=== PATIENT | female | born 1970 | race Caucasian/White ===

== ENCOUNTER 2017-01-08 11:28 | Outpatient (CLI) | payer OTHER ==
[2017-01-08 12:54] LABS: #Basophils 0.1 thou/uL (0.0-0.2); #Eosinphils 0.2 thou/uL (0.0-0.7); #Lymphocytes 2.3 thou/uL (1.20-3.40); #Monocytes 0.8 thou/uL (0.11-0.59); #Neutrophils 8.9 thou/uL (1.40-6.50); %Basophils 0.8 % (0.0-1.0); %Eosinophils 1.5 % (0.0-10.0); %Lymphocytes 18.4 % (21.0-51.0); %Monocytes 6.8 % (0.0-10.0); %Neutrophils 72.5 % (42.0-75.0); Hemoglobin 15.3 g/dL (12.0-16.0); Mean Corpuscular HGB CONC 34.6 g/dL (32.0-36.0); Mean Corpuscular Hemoglobin 32.7 pg (27.0-31.0); Mean Corpuscular Volume 94.7 fl (81.0-99.0); Mean Platelet Volume 6.1 fL (7.4-10.4); Platelet Count 341 thou/uL (130-400); Red Blood Cell (RBC) Count 4.67 mill/uL (4.20-5.40); White Blood Cell (WBC) Count 12.3 thou/uL (4.8-10.8)
[2017-01-08 13:05] LABS: ALT (SGPT) 19 U/L (0-55); AST (SGOT) 15 U/L (5-34); Albumin 4.1 g/dL (3.5-5.0); Alkaline Phosphatase 60 U/L (40-150); Anion Gap 15 mmol/L (10-20); BUN (Urea Nitrogen) 9 mg/dL (7.0-18.7); Bilirubin, Direct 0.2 mg/dL (0.1-0.3); Bilirubin, Total 0.5 mg/dL (0.2-1.2); Calc. Creatinine Clearance 0 mL/min (70-130); Calcium 9.3 mg/dL (7.8-10.44); Carbon Dioxide 22 mmol/L (22-29); Cardiac Risk 3.9 (Less than 4.5); Chloride 106 mmol/L (98-107); Cholesterol 154 mg/dL (< 200 Desired); Estimated GFR-MDRD 87; Glucose 136 mg/dL (70-105); HDL Cholesterol 40 mg/dL (>60 Neg Risk); LDL Cholesterol, Calculated 92 mg/dL; Potassium 4.2 mmol/L (3.5-5.1); Protein, Total 6.7 g/dL (6.0-8.3); Sodium 139 mmol/L (136-145); Triglycerides 108 mg/dL (Less than 150)
[2017-01-08 13:21] LABS: Free T4 (Free Thyroxine) 0.9 ng/dL (0.70-1.48); Thyroid Stimulating Hormone 0.8455 uIU/mL (0.35-4.94)
[2017-01-08 13:35] LABS: Hemoglobin A1c 8.9 % (4.0-6.0)
== END 2017-01-08 11:29 | disposition home or self-care (01) ==
LOC: NAVSJIPCSP 11:28
PROVIDERS: ATTEND Family Medicine
DX: E06.3 Autoimmune thyroiditis (principal); J40 Bronchitis, not specified as acute or chronic; E11.65 Type 2 diabetes mellitus with hyperglycemia; E11.40 Type 2 diabetes mellitus with diabetic neuropathy, unspecified; E78.5 Hyperlipidemia, unspecified; R40.0 Somnolence; R00.0 Tachycardia, unspecified; G43.009 Migraine without aura, not intractable, without status migrainosus; G31.84 Mild cognitive impairment of uncertain or unknown etiology; E03.8 Other specified hypothyroidism; Z72.0 Tobacco use; Z79.899 Other long term (current) drug therapy
CPT/HCPCS: 36415; 80048; 80061; 80076; 83036; 84439; 84443; 84481; 85025

== ENCOUNTER 2018-08-05 14:40 | Emergency (ER) | payer BC ==
--- NOTE | 2018-08-05 16:13 | RAD ---
RADIOGRAPH CHEST 2 VIEWS: HISTORY: A 47-year-old female with cough, fever, and chest congestion. FINDINGS: There is no air space density, pulmonary edema, pleural effusion, pneumothorax, or cardiomegaly. IMPRESSION: No acute cardiopulmonary findings. jn [] POS: [facility]
[2018-08-05] MEDS ORDERED: Albuterol Sulfate 2.5 mg/0.5 ml Neb ONE (16:51)
[2018-08-05] MEDS ORDERED: Azithromycin 250 MG TAB ONE (17:40)
[2018-08-05] MEDS ORDERED: Dexamethasone 20 MG/5 ML VIAL ONE (17:42)
== END 2018-08-05 18:00 | disposition home or self-care (01) ==
LOC: NAV ERS 14:40
DX: R50.9 Fever, unspecified (principal); R05 Cough; E11.9 Type 2 diabetes mellitus without complications; E78.5 Hyperlipidemia, unspecified; J45.909 Unspecified asthma, uncomplicated; F32.9 Major depressive disorder, single episode, unspecified; F17.210 Nicotine dependence, cigarettes, uncomplicated; Z79.4 Long term (current) use of insulin; Z79.899 Other long term (current) drug therapy
CPT/HCPCS: 71046; 87081; 87430; 87804; 96372; J1100; J7611

== ENCOUNTER 2019-03-09 14:52 | Observation (INO) | payer BC ==
[2019-03-09] MEDS ORDERED: Sodium Chloride 0.9% 1,000 ML ONE ×2 (15:13→16:32)
[2019-03-09] MEDS ORDERED: Morphine 4 MG/ML VIAL ONE (15:13)
[2019-03-09] MEDS ORDERED: Ondansetron PF 4 MG/2 ML Vial ONE (15:13)
[2019-03-09 15:55] LABS: ALT (SGPT) 20 U/L (8-55); AST (SGOT) 21 U/L (5-34); Alkaline Phosphatase 66 U/L (40-150); Anion Gap 16 mmol/L (10-20); BUN (Urea Nitrogen) 9 mg/dL (7.0-18.7); Bilirubin, Total 0.2 mg/dL (0.2-1.2); Calc. Creatinine Clearance 0 mL/min (70-130); Calcium 9.2 mg/dL (7.8-10.44); Carbon Dioxide 23 mmol/L (22-29); Chloride 104 mmol/L (98-107); Estimated GFR-MDRD 87; Globulin 2.6 g/dL (2.4-3.5); Glucose 174 mg/dL (70-105); Lipase 9 U/L (8-78); Magnesium 1.9 mg/dL (1.6-2.6); Potassium 3.5 mmol/L (3.5-5.1); Protein, Total 6.6 g/dL (6.0-8.3); Sodium 139 mmol/L (136-145)
[2019-03-09 16:01] LABS: Hemoglobin 15.1 g/dL (12.0-16.0); Mean Corpuscular HGB CONC 33.5 g/dL (32.0-36.0); Mean Corpuscular Volume 95.5 fL (78.0-98.0); Mean Platelet Volume 5.8 fL (7.4-10.4); Platelet Count 345 thou/uL (130-400); RBC Distribution Width 11.4 % (11.5-14.5); Red Blood Cell (RBC) Count 4.73 mill/uL (4.20-5.40); White Blood Cell (WBC) Count 22.1 thou/uL (4.8-10.8)
[2019-03-09 16:25] LABS: Band 1 % (5-11); Lymphocytes 14 % (21-51); MDiff Complete? YES; Monocytes 3 % (0-10); Neutrophil 82 % (42-75); Platelet Morphology Comment Appears Adequate; RBC Morphology Normal
[2019-03-09 17:06] LABS: Bilirubin Negative (Negative); Blood, Urine Negative (Negative); Clarity Clear (Clear); Glucose, Urine (Dipstick) >=1000 mg/dL (Negative); Leukocyte Negative (Negative); Nitrite Negative (Negative); Protein, Urine (Dipstick) Negative (Neg-Trace); Urobilinogen 0.2 mg/dL (0.2-1.0)
--- NOTE | 2019-03-09 17:43 | CT ---
CT abdomen and pelvis noncontrast HISTORY: Abdominal pain. Diarrhea. Iodine allergy. FINDINGS: Each renal collecting system, ureter, and are decompressed stone apparent. Lack of contrast limits evaluation for other abnormalities. Lung bases are clear. No evidence of elaine l obstruction. Small hiatal hernia. Occasional colonic diverticula. No adjacent inflammation. Urinary bladder is incompletely distended. IMPRESSION: No significant abnormalities are demonstrated. Iodine allergy.
[2019-03-09 19:38] VITALS: BMI 30.4
[2019-03-09] MEDS ORDERED: Ventolin HFA Inhaler 60 PUFF INHALER INH PRN (19:47)
[2019-03-09] MEDS ORDERED: SUMAtriptan Succinate 50 MG TAB PO PRN (19:47)
[2019-03-09] MEDS ORDERED: Loperamide HCl 2 MG CAP PO PRN (19:50)
[2019-03-09] MEDS ORDERED: Calcium Carbonate 500 MG ChewTAB PO PRN (19:50)
[2019-03-09] MEDS ORDERED: Ondansetron ODT 4 MG TAB PO PRN (19:50)
[2019-03-09] MEDS ORDERED: Lantus 1000 UNITS/10 ML VIAL SC SCH (21:00)
[2019-03-09] MEDS: Nicotine 14 MG PATCH TD SCH (21:22)
[2019-03-09] MEDS: Sodium Chloride 0.9% 1,000 ML IV SCH (21:24)
[2019-03-09] MEDS: Famotidine 20 MG TAB PO SCH (21:24)
[2019-03-09] MEDS: Acetaminophen 500 MG TAB PO PRN (21:47)
--- NOTE | 2019-03-10 03:01 | HP ---
HISTORY OF PRESENT ILLNESS: Ms. Olivares is a 48-year-old white female who comes to the emergency room complaining of diarrhea and feeling terrible over the last week. She states this started a week ago Wednesday with upset stomach and some mild diarrhea and has gotten progressively worse. She states it started the afternoon after seeing Dr. Oneil for results of her cardiac cath, which was done on the . The results basically were unremarkable without any blockages. She states she got to the point where every time she ate she would have diarrhea, so she pretty much stopped eating unless her blood sugar started going low. She presented to the emergency room, was evaluated by Dr. Nicolas, which is a pretty standard evaluation. Everything was basically normal except for white count was [id number]. She was noted to be somewhat dehydrated and gave her a brief 3 L of fluid. She states she is much improved, but still very weak and still somewhat nauseous and still having some abdominal pain. The ER physician felt that most likely this was viral etiology, but felt that she was enough dehydrated and diarrhea that he wanted to place her on observation for their evaluation overnight. He contacted me and I agreed, so the patient was admitted. PAST MEDICAL HISTORY: 1. Positive for diabetes type 2, which has been uncontrolled. 2. Chest pressure, which was evaluated by Dr. Oneil with a cardiac cath, which was unremarkable. 3. Hyperlipidemia. 4. Nicotine dependence. The patient is a heavy smoker at least one pack a day for at least 25 years. 5. Tobacco abuse. 6. Noncompliance with medical treatment. 7. Hypothyroidism. 8. History of migraine without aura. 9. Tachycardia. 10. Major depressive episode. 11. Asthma. 12. Hypercholesterolemia. PAST SURGICAL HISTORY: 1. Appendectomy. 2. Bilateral tubal ligation. 3. Bladder suspension. 4. Urine ablation at [facility] in 2009. 5. Right hand surgery. 6. Fiberoptic laryngoscope. 7. [place]il[place] [address] Castellon. 8. Plantar wart removal again by Dr. Bear in 2018. PRESENT MEDICATIONS: Reveal she is presently on the following medications, which include: 1. Metoprolol, I believe it is 50 mg once daily. 2. Crestor 40 mg daily. 3. Lantus 40 units b.i.d. 4. Levothyroxine 75 mcg daily. 5. Montelukast 10 mg every evening. 6. Venlafaxine 150 mg with food b.i.d. 7. Relpax 40 mg once daily. 8. ProAir 2 puffs q.4 hours p.r.n. ALLERGIES: THE PATIENT IS NOTED TO BE ALLERGIC TO POLLENS, SHELLFISH, IODINE, KEFLEX, AUGMENTIN, CIPRO. FAMILY HISTORY: Reveals the patient's father of heart disease and high blood pressure, bleeding ulcer, depression. He also had diabetes and hypertension. The patient's mother is alive, has allergies, heart disease, high blood pressure, asthma, skin cancer, diabetes and hypertension. Siblings had hearing loss after age 20, hypertension, asthma, bleeding and clotting problems. SOCIAL HISTORY: The patient smokes 1 pack per day. She does not drink alcohol. She is and has several children. She does not exercise and does not have advanced directives. REVIEW OF SYMPTOMS: On review, the patient has subjective fever, chills and night sweats. She states she is not gaining weight and thinks she may have lost some weight. She denies any change in vision. Denies any ear problems or ear drainage. Denies any change in hearing loss. Cardiac ni she denies any substernal pressure or palpitations or irregular heartbeat. Denies any racing heartbeats over the last 24 hours. Pulmonary ni, she is not short of breath. She is not wheezing. She does still cough, but that is from her tobacco exposure. GI: The patient has mild diffuse abdominal pain, some nausea, but no vomiting. No significant heartburn, indigestion. She does have diarrhea and no constipation. This has been a change in her bowel habits in the last 10 days. : Denies any dysuria, hematuria, urgency, or frequency. She has not voided very much, but did get 3 L of fluid and has voided a little bit for urine sample. Denies any skin rashes, skin lesions or pruritus. NEUROLOGIC: She denies any confusion or loss of consciousness. PHYSICAL EXAMINATION: GENERAL: This is a well-developed, well-nourished, very pleasant 48-year-old white female who states she feels a little bit better since she has gotten some fluids. HEENT: Normocephalic, nontraumatic cranium with the pupils are equally round and reactive. Extraocular movements are intact. Nose and throat are slightly dry, but clear. NECK: Supple without masses, nodes, or bruits. CHEST: Clear to auscultation. Occasional coarse breath sounds are heard that cleared with cough. The patient does smell of cigarette smoke. HEART: Reveals a regular rate and rhythm without murmurs, gallops, or rubs. ABDOMEN: Soft, but diffusely tender, but no rebound or guarding is noted. The patient has normal bowel sounds at this time. : Deferred. EXTREMITIES: Reveal no clubbing, cyanosis, or edema. MUSCULOSKELETAL: The patient complains of some slight swelling in her right leg, but it is barely noticeable. The patient also complains of some tenderness in her right arm where she had her cardiac cath done, but she states that Dr. Oneil said that was normal. PSYCHOLOGIC: The patient is alert and oriented x3. ASSESSMENT: 1. Most likely viral gastroenteritis. 2. Diabetes type 2. 3. Recent cardiac evaluation for coronary artery disease, which was unremarkable. 4. Hypercholesterolemia. 5. Hypothyroidism. 6. Asthma. 7. Nicotine dependence. 8. History of leukocytosis. 9. Major depressive disorder. 10. History of migraines without aura. 11. Chronic obstructive pulmonary disease. 12. Noncompliance in the past with diabetes and her medical treatments. PLAN: 1. The patient has been admitted. We will continue low normal saline IV. 2. We will repeat a comp met and a CBC tomorrow morning. 3. Continue to make the patient comfortable this evening and make sure, if she has a stool, we will get a stool sample. 4. Stool will be for fecal leukocytes, C. diff, stool culture and sensitivity. Job ID: [id number]
[2019-03-10] MEDS: Loperamide HCl 2 MG CAP PO PRN ×3 (04:50→20:58)
[2019-03-10] MEDS: Levothyroxine Sodium 75 MCG TAB PO SCH (04:50)
[2019-03-10 05:21] LABS: #Basophils 0.1 thou/uL (0.0-0.2); #Eosinphils 0.1 thou/uL (0.0-0.7); #Lymphocytes 2.1 thou/uL (1.20-3.40); #Monocytes 1.7 thou/uL (0.11-0.59); #Neutrophils 17.9 thou/uL (1.40-6.50); %Basophils 0.5 % (0.0-1.0); %Eosinophils 0.3 % (0.0-10.0); %Lymphocytes 9.4 % (21.0-51.0); %Monocytes 7.8 % (0.0-10.0); %Neutrophils 82.1 % (42.0-75.0); Hemoglobin 13.4 g/dL (12.0-16.0); Mean Corpuscular HGB CONC 32.5 g/dL (32.0-36.0); Mean Corpuscular Hemoglobin 31.5 pg (27.0-31.0); Mean Corpuscular Volume 96.8 fL (78.0-98.0); Mean Platelet Volume 5.6 fL (7.4-10.4); Platelet Count 324 thou/uL (130-400); RBC Distribution Width 11.3 % (11.5-14.5); Red Blood Cell (RBC) Count 4.27 mill/uL (4.20-5.40); White Blood Cell (WBC) Count 21.8 thou/uL (4.8-10.8)
[2019-03-10 05:28] LABS: ALT (SGPT) 18 U/L (8-55); AST (SGOT) 20 U/L (5-34); Albumin 3.3 g/dL (3.5-5.0); Alkaline Phosphatase 54 U/L (40-150); Anion Gap 15 mmol/L (10-20); BUN (Urea Nitrogen) 7 mg/dL (7.0-18.7); Bilirubin, Total 0.2 mg/dL (0.2-1.2); Calc. Creatinine Clearance 152 mL/min (70-130); Calcium 8.3 mg/dL (7.8-10.44); Carbon Dioxide 22 mmol/L (22-29); Chloride 110 mmol/L (98-107); Estimated GFR-MDRD Greater than 90; Globulin 2.3 g/dL (2.4-3.5); Glucose 70 mg/dL (70-105); Potassium 3.8 mmol/L (3.5-5.1); Protein, Total 5.6 g/dL (6.0-8.3); Sodium 143 mmol/L (136-145)
[2019-03-10] MEDS ORDERED: Hyoscyamine Sulfate SL 0.125 mg Tablet SL PRN (06:50)
[2019-03-10] MEDS ORDERED: Dextrose 5% in Water 1,000 ML IV PRN (06:51)
[2019-03-10] MEDS ORDERED: HumaLOG 300 UNITS/3 ML VIAL SC PRN ×2 (06:51)
[2019-03-10] MEDS ORDERED: Dextrose 50% Abboject 50 ML SYRINGE IVP PRN (06:52)
[2019-03-10] MEDS: Acetaminophen 500 MG TAB PO PRN (08:55)
[2019-03-10] MEDS: Venlafaxine HCl XR 75 MG CAP PO SCH (08:55)
[2019-03-10] MEDS: Dicyclomine 20 MG TAB PO SCH ×4 (08:56→20:53)
[2019-03-10] MEDS: Rosuvastatin 10 MG TAB PO SCH (08:56)
[2019-03-10] MEDS: Famotidine 20 MG TAB PO SCH ×2 (08:56→20:53)
[2019-03-10] MEDS: Sodium Chloride 0.9% 1,000 ML IV SCH (17:16)
[2019-03-10 18:56] LABS: #Basophils 0.1 thou/uL (0.0-0.2); #Eosinphils 0.1 thou/uL (0.0-0.7); #Lymphocytes 1.9 thou/uL (1.20-3.40); #Monocytes 1.5 thou/uL (0.11-0.59); #Neutrophils 13.9 thou/uL (1.40-6.50); %Basophils 0.5 % (0.0-1.0); %Eosinophils 0.4 % (0.0-10.0); %Lymphocytes 10.9 % (21.0-51.0); %Monocytes 8.7 % (0.0-10.0); %Neutrophils 79.5 % (42.0-75.0); Hemoglobin 12.6 g/dL (12.0-16.0); Mean Corpuscular HGB CONC 33.3 g/dL (32.0-36.0); Mean Corpuscular Hemoglobin 32.3 pg (27.0-31.0); Mean Platelet Volume 5.5 fL (7.4-10.4); Platelet Count 299 thou/uL (130-400); Red Blood Cell (RBC) Count 3.91 mill/uL (4.20-5.40); White Blood Cell (WBC) Count 17.5 thou/uL (4.8-10.8)
[2019-03-10] MEDS: Nicotine 14 MG PATCH TD SCH (21:01)
[2019-03-10] MEDS ORDERED: Zolpidem Tartrate 5 MG TAB PO PRN (21:28)
[2019-03-11 05:18] LABS: #Basophils 0.1 thou/uL (0.0-0.2); #Eosinphils 0.1 thou/uL (0.0-0.7); #Monocytes 1.4 thou/uL (0.11-0.59); #Neutrophils 12.4 thou/uL (1.40-6.50); %Basophils 0.7 % (0.0-1.0); %Eosinophils 0.5 % (0.0-10.0); %Lymphocytes 12.8 % (21.0-51.0); %Monocytes 8.5 % (0.0-10.0); %Neutrophils 77.5 % (42.0-75.0); Mean Corpuscular HGB CONC 33.4 g/dL (32.0-36.0); Mean Corpuscular Volume 95.8 fL (78.0-98.0); Mean Platelet Volume 5.7 fL (7.4-10.4); Platelet Count 317 thou/uL (130-400); RBC Distribution Width 11.8 % (11.5-14.5); Red Blood Cell (RBC) Count 4.06 mill/uL (4.20-5.40)
[2019-03-11] MEDS: Levothyroxine Sodium 75 MCG TAB PO SCH (05:28)
[2019-03-11 05:33] LABS: ALT (SGPT) 17 U/L (8-55); AST (SGOT) 18 U/L (5-34); Albumin 3.2 g/dL (3.5-5.0); Alkaline Phosphatase 53 U/L (40-150); Anion Gap 13 mmol/L (10-20); BUN (Urea Nitrogen) 6 mg/dL (7.0-18.7); Bilirubin, Total 0.3 mg/dL (0.2-1.2); Calc. Creatinine Clearance 0 mL/min (70-130); Calcium 8.2 mg/dL (7.8-10.44); Carbon Dioxide 24 mmol/L (22-29); Chloride 109 mmol/L (98-107); Estimated GFR-MDRD Greater than 90; Globulin 2.1 g/dL (2.4-3.5); Glucose 73 mg/dL (70-105); Potassium 3.5 mmol/L (3.5-5.1); Protein, Total 5.3 g/dL (6.0-8.3); Sodium 142 mmol/L (136-145)
[2019-03-11 07:26] VITALS: BP 107/53; TEMP 97.9
[2019-03-11] MEDS: Dicyclomine 20 MG TAB PO SCH (08:44)
[2019-03-11] MEDS: Famotidine 20 MG TAB PO SCH (08:44)
[2019-03-11] MEDS: Venlafaxine HCl XR 75 MG CAP PO SCH (08:44)
[2019-03-11] MEDS: Acetaminophen 500 MG TAB PO PRN (08:45)
[2019-03-11] MEDS: Loperamide HCl 2 MG CAP PO PRN (08:45)
[2019-03-11] MEDS: Rosuvastatin 10 MG TAB PO SCH (08:51)
--- NOTE | 2019-03-13 11:24 | DIS ---
DATE OF ADMISSION: 03/09/2019 DATE OF DISCHARGE: 03/11/2019 HISTORY OF PRESENT ILLNESS: Ms. Olivares is a very pleasant 48-year-old white female with a 10-day history of diarrhea with nausea, but no vomiting. She was seen in the emergency room with severely [place] [id number]. She usually runs a white count of about [id number], typically with leukocytosis. She was admitted to the hospital, because she was dehydrated and [place] [id number]. Blood cultures have thus far been negative. Stool cultures have been negative thus far. She did get 3 L of fluid in the ER, because of dehydration and we kept her on 50 mL an hour normal saline here. She states she is feeling much better and actually this morning she woke up, she was hungry. Her urine output is back to her normal and her labs are almost back to [place] [id number]. PHYSICAL EXAMINATION: VITAL SIGNS: This morning reveal blood pressure 106/58, pulse 83, respirations 16, O2 saturation 98% on room air, temp 97.0. GENERAL: This is a well-developed, well-nourished, very pleasant white female, who states she feels so much better. She feels like she would like to eat something this morning. HEENT: Normocephalic and nontraumatic cranium. Pupils equally round and reactive. Extraocular movement is intact. Nose and throat are slightly dry, but much improved. NECK: Supple without masses, nodes, or bruits. CHEST: Clear to auscultation. No rales, no rhonchi, no wheezes are noted. No cough is noted this morning. The patient is a heavy smoker. She has been smoking for many years. ABDOMEN: Soft, nontender with normal bowel sounds this morning. No rebound or guarding is noted. The patient states her achiness is pretty much totally gone. GENITOURINARY: Deferred. EXTREMITIES: Reveal no clubbing, cyanosis, or edema. ASSESSMENT: 1. Dehydration. 2. Diarrhea. 3. Type 2 diabetes, fairly well controlled with sliding scale. 4. Hyperlipidemia. 5. Tobacco abuse. 6. Hypothyroidism. 7. History of migraines without aura. 8. Tachycardia, much improved. 9. History of major depressive disorder. 10. History of asthma. 11. History of chronic obstructive pulmonary disease. 12. Hypercholesterolemia. PLAN: 1. The patient has actually done very well. She is ready for discharge. 2. The patient will continue on her present home medications plus we have sent in Bentyl 20 mg 1 p.o. q.i.d. p.r.n. upset or irritable stomach and colon. The patient has also been sent some hyoscyamine 0.375 sublingual underneath her tongue up to 4 times a day p.r.n. bad stomach cramps or abdominal cramps. 3. The patient will follow up with me in my office p.r.n. as needed, hopefully within the next week. Job ID: [id number]
--- NOTE | 2019-03-13 15:44 | PRG ---
DATE OF SERVICE: 03/10/2019 SUBJECTIVE: Ms. Olivares is a 48-year-old white female, came to the emergency room complaining of diarrhea and feeling terrible and dehydrated. She was evaluated and found to have significant diarrhea and dehydration. Dr. Nicolas felt that she needed to be placed in the hospital for further evaluation because she had a white count of 22,000. This morning, her white count was 21,000 and we repeated another one today at 17,000. She states she is feeling a little better this evening, but still unable to keep very much down and still having some pasty type stools. It is felt that the patient needs one more night of IV fluids and hopefully, she will be better in the morning. We can discharge her. OBJECTIVE: VITAL SIGNS: Today reveal blood pressure 107/59; pulse 88, down to 83; T-max 98.3; respirations 18 to 20; O2 saturation 95% to 96% on room air. GENERAL: This is a well-developed, well-nourished, 48-year-old white female, in no apparent distress at this time. HEENT: Reveals normocephalic and nontraumatic cranium. Pupils are equal, round, reactive. Extraocular movements are intact. Nose and throat are slightly dry, but better. NECK: Supple without masses, nodes, or bruits. CHEST: Clear to auscultation. No rales, rhonchi, wheezes, or cough is noted. HEART: Reveals a regular rate and rhythm without murmurs, gallops, or rubs. ABDOMEN: Soft. Slightly less tender. No rebound or guarding is noted. Bowel sounds are still normal. GENITOURINARY: Deferred. EXTREMITIES: Reveal no clubbing, cyanosis, or edema. ASSESSMENT: 1. Dehydration. 2. Viral gastroenteritis with significant diarrhea for 10 days. 3. Diabetes type 2. 4. Recent cardiac evaluation, which was unremarkable. 5. Hypercholesterolemia. 6. Hypothyroidism. 7. Asthma. 8. Nicotine dependence. 9. History of leukocytosis. 10. History of major depressive disorder, history of migraines without aura. 11. Chronic obstructive pulmonary disease. 12. Noncompliance in the past and diabetes, on medical treatment. PLAN: 1. The patient will be kept in extended observation overnight. 2. Continue her normal saline IV. 3. Repeat comp met and CBC tomorrow morning. 4. Most likely, the patient continues to get little better. We will discharge her tomorrow morning. Job ID: [id number]
[2019-03-16 17:07] LABS: Routine O & P Final report (.)
== END 2019-03-11 11:40 | disposition home or self-care (01) ==
LOC: NAV ERS 14:52 → NAV ACUTE 18:30
PROVIDERS: ADMIT Family Medicine; ATTEND Family Medicine
DX: E86.0 Dehydration (principal); A08.4 Viral intestinal infection, unspecified; E11.9 Type 2 diabetes mellitus without complications; E78.5 Hyperlipidemia, unspecified; E78.00 Pure hypercholesterolemia, unspecified; E03.9 Hypothyroidism, unspecified; G43.009 Migraine without aura, not intractable, without status migrainosus; R00.0 Tachycardia, unspecified; F32.9 Major depressive disorder, single episode, unspecified; J44.9 Chronic obstructive pulmonary disease, unspecified; F17.210 Nicotine dependence, cigarettes, uncomplicated; G30.9 Alzheimer's disease, unspecified; F02.80 Dementia in other diseases classified elsewhere, unspecified severity, without behavioral disturbance, psychotic disturbance, mood disturbance, and anxiety; Z91.19 Patient's noncompliance with other medical treatment and regimen; Z88.1 Allergy status to other antibiotic agents; Z91.013 Allergy to seafood; Z91.030 Bee allergy status; Z91.041 Radiographic dye allergy status; Z79.4 Long term (current) use of insulin; Z79.899 Other long term (current) drug therapy
CPT/HCPCS: 36416; 74176; 80053; 81003; 82150; 83605; 83630; 83690; 83735; 85025; 87040; 87081; 87177; 87324; 87449; 93005; 96361; 96374; 96375; 36415-59; G0378; J1815; J2270; J2405; J7050; Q0162